=== PATIENT | male | born 1955 | race Caucasian/White ===

== ENCOUNTER 2016-09-29 07:43 | Day surgery (SDC) | payer BC ==
[2016-09-28 16:05] LABS: HEMATOCRIT 39.2 % (42.0-54.0); HEMOGLOBIN 13.7 g/dL (13.5-17.5); MCH 33.3 pg (26.0-34.0); MCHC 34.9 g/dL (31.0-37.0); MCV 95.4 fL (80.0-100.0); MEAN PLATELET VOLUME 9.7 fL (7.4-10.4); RBC 4.11 10x6/uL (4.20-6.10); RDW 12.6 % (11.5-14.5); WBC 8.7 10x3/uL (4.8-10.8)
[2016-09-28 16:33] LABS: CALC OSMOLALITY 284 mosm/kg (275-300); CALCIUM 9.1 mg/dL (8.5-10.1); CHLORIDE - SERUM 103 mmol/L (98-107); GLUCOSE 146 mg/dL (74-106); SODIUM 141 mmol/L (136-145); UREA NITROGEN 14 mg/dL (7-18); eGFR NON AFRICAN AMERICAN 81 mL/min (90-120)
[~2016-09-29] VITALS: Ht 175.3 cm; Wt 89.8 kg
[2016-09-29] MEDS ORDERED: HYDROCODONE-APA1 TAB PO ×2 (09:52→12:36)
[2016-09-29] MEDS ORDERED: FLOMAX0.4 MG PO (09:53)
[2016-09-29] MEDS ORDERED: PROZAC20 MG PO (09:53)
[2016-09-29] MEDS ORDERED: METHOTREXATE2.5 MG PO (09:53)
[2016-09-29] MEDS ORDERED: FOLIC ACID1 MG PO (09:54)
[2016-09-29] MEDS ORDERED: APIDRA SOL100 UNIT/1 SQ (09:54)
[2016-09-29] MEDS ORDERED: NAPROSYN500 MG PO (09:54)
[2016-09-29] MEDS ORDERED: LIPITOR20 MG PO (09:55)
[2016-09-29] MEDS ORDERED: LANTUS INSULIN10 ML (09:55)
[2016-09-29] MEDS ORDERED: LISINOPRIL2.5 MG PO (09:56)
[2016-09-29] MEDS ORDERED: SYNTHROID300 MCG PO (09:56)
[2016-09-29 10:00] VITALS: BP 139/86; Ht 175.3 cm; Wt 89.8 kg
--- NOTE | 2016-09-29 14:54 | NUR ---
1400--IV DC'D, PT UP TO DRESS. NAV JOSUE 1411--DISCHARGE INSTRUCTIONS GIVEN, PT VERBALIZES UNDERSTANDING. PT OFF UNIT VIA WC. NAV JOSUE
--- NOTE | 2016-10-06 13:14 | OP ---
PATIENT NAME: MOHAN STERLING V MEDICAL RECORD: [id number] LOCATION:D.OPS ADMISSION DATE: SURGEON: KAYLIE JOHNSON MD OPERATION DATE: 09/29/16 DATE OF OPERATION: 09/29/2016 PREOPERATIVE DIAGNOSES: Deep cyst left finger -- foreign body. POSTOPERATIVE DIAGNOSIS: Deep cyst left finger -- foreign body. PROCEDURE: Removal of the above. SURGEON: Kaylie Johnson MD ANESTHESIA: General. INTRAOPERATIVE COMPLICATIONS: None. SUMMARY OF PATHOLOGIC FINDINGS: Large wide elliptical incision looked to show this thing as an epidermal inclusion cyst, although it was not readily identifiable on gross only. OPERATIVE SUMMARY IN DETAIL: After obtaining the appropriate preoperative orthopedic surgery consent as well as anesthetic consultation, evaluation and clearance, the patient was brought to the operating room and placed on the table in supine position. After general laryngeal mask was administered, the left upper extremity was prepped and draped in routine sterile fashion. A digital block was performed at this time on either side of the left index finger. An elliptical incision was done of the skin as this was grossly protruding cyst and then it was taken down to the level of the cyst, which was adherent to the periosteum of the distal phalanx. The cyst did come out somewhat morselized; however, I do feel like that all portions of the cyst were removed after dissection. This wound was copiously irrigated and closed with 4-0 Prolene in routine interrupted fashion. Sterile dressings were applied. The patient was awakened and taken to the recovery room in stable condition. All final needle and sponge counts were correct. TRANSINT:[id number] Voice Confirmation ID: [id number] DOCUMENT ID: [id number] KAYLIE JOHNSON MD at 1314 CC: [id number] DICTATION DATE: 09/30/16 1050 DOCUMENT PREPARATION SPECIALIST: 10/06/16 0002 [facility] 09/29/16 [place] [id number] [place] [id number]
== END 2016-09-29 14:15 | disposition home or self-care (01) ==
LOC: D.OPS 07:43 → D.PAN 11:05 → D.OPS 11:05 → D.PAN 14:45
PROVIDERS: Anesthesiology
DX: S60.451A Superficial foreign body of left index finger, initial encounter (principal); F17.200 Nicotine dependence, unspecified, uncomplicated; E11.9 Type 2 diabetes mellitus without complications; M06.9 Rheumatoid arthritis, unspecified; E03.9 Hypothyroidism, unspecified; Z01.812 Encounter for preprocedural laboratory examination